=== PATIENT | male | born 1965 | race Native Hawaiian/Other Pacific Islander ===

== ENCOUNTER 2017-06-28 10:58 | Outpatient (CLI) | payer BC ==
[2017-06-28 11:27] LABS: PLATELET COUNT 279 K/uL (142-355)
[2017-06-28 11:37] LABS: POTASSIUM 4.4 mmol/L (3.6-5.2); SODIUM 136 mmol/L (136-145)
== END 2017-06-28 18:57 | disposition home or self-care (01) ==
LOC: LABW 10:58
PROVIDERS: Nurse Practitioner Family
DX: R06.02 Shortness of breath (principal); J06.9 Acute upper respiratory infection, unspecified
CPT/HCPCS: 36415; 80053; 85027

== ENCOUNTER 2018-01-12 09:25 | Outpatient (CLI) | payer BC ==
[2018-01-12 10:08] LABS: PLATELET COUNT 267 K/uL (142-355)
[2018-01-12 10:28] LABS: POTASSIUM 4.7 mmol/L (3.6-5.2)
== END 2018-01-12 19:25 | disposition home or self-care (01) ==
LOC: LABW 09:25
PROVIDERS: Internal Medicine
DX: Z00.00 Encounter for general adult medical examination without abnormal findings (principal); R03.0 Elevated blood-pressure reading, without diagnosis of hypertension; E78.4 Other hyperlipidemia; Z12.5 Encounter for screening for malignant neoplasm of prostate; R79.89 Other specified abnormal findings of blood chemistry
CPT/HCPCS: 36415; 80053; 80061; 83036; 84153; 84443; 85027

== ENCOUNTER 2022-09-16 12:37 | Outpatient (CLI) | payer BC | END 2022-09-16 18:58 | disposition home or self-care (01) | LOC: MRI 12:37 | PROVIDERS: ATTEND Orthopaedic Surgery | DX: M54.59 Other low back pain (principal); M51.36 Other intervertebral disc degeneration, lumbar region; M48.062 Spinal stenosis, lumbar region with neurogenic claudication; M41.86 Other forms of scoliosis, lumbar region; M41.85 Other forms of scoliosis, thoracolumbar region; R53.1 Weakness ==